=== PATIENT | male | born 1995 | race Hispanic/Latino ===

== ENCOUNTER 2024-03-08 09:55 | Emergency (ER) | payer SELFPAY ==
[2024-03-08] MEDS ORDERED: Ibuprofen 200 MG TAB ONE (11:06)
== END 2024-03-08 12:03 | disposition home or self-care (01) ==
LOC: CSHERS 09:55
DX: S22.31XA Fracture of one rib, right side, initial encounter for closed fracture (principal); W18.30XA Fall on same level, unspecified, initial encounter; Z55.6 Problems related to health literacy
CPT/HCPCS: 99283